=== PATIENT | female | born 2000 | race Two or more races ===

== ENCOUNTER 2022-04-07 02:47 | Emergency (ER) | payer OTHER ==
[2022-04-07 02:58] VITALS: BP 139/92
--- NOTE | 2022-04-07 03:40 | ED Physician Documentation ---
PD HPI UPPER EXT INJURY - Stated complaint Stated Complaint: R THUMB LAC - Chief complaint Chief Complaint: Laceration - History obtained from History obtained from: Patient - History of Present Illness Location: Right, Finger (thumb) Type of injury: Laceration Where injury occurred: Home Timing - onset: Enter time (02:30) Timing - details: Abrupt onset Associated symptoms: No: Weakness, Numbness, Tingling Similar symptoms before: Has not had sx before Recently seen: Not recently seen - Additonal information Additional information: at approximately 2:30 AM this morning patient sustained right thumb laceration on a pocket knife she was using to try to pry open the trunk of her car. She is right hand dominant. She is UTD on immunizations including tetanus. Review of Systems Skin: reports: Laceration (s) Musculoskeletal: reports: Extremity pain (localized to site of laceration). denies: Extremity swelling Neurologic: denies: Focal weakness, Numbness PD PAST MEDICAL HISTORY - Past Medical History Past Medical History: No - Present Medications Home Medications: Ambulatory Orders Medication Instructions Recorded Confirmed No Known Home Medications 04/07/22 04/07/22 - Allergies Allergies/Adverse Reactions: Allergies Allergy/AdvReac Type Severity Reaction Status Date / Time No Known Drug Allergies Allergy Verified 04/07/22 02:58 - Living Situation Living Arrangement: reports: At home PD ED PE NORMAL - Vitals Vital signs reviewed: Yes - General General: Alert and oriented X 3, No acute distress, Well developed/nourished - Extremities Extremities: Normal ROM s pain, Other ("C"-shaped beveled laceration to tip of right thumb pad) - Neuro Neuro: No motor deficit, No sensory deficit Results - Vitals Vitals: Oxygen O2 Source Room air Procedures - Laceration (location) Finger right Length in cm: 2 Wound type: Curved, Into subcut fat Neurovascular status: Sensory intact, Motor intact, Vascular intact Tendon involvement: Tendon intact Anesthesia: Lidocaine 1% Wound preparation: Chlorhexadine, Irrigated copiously NS, Wound explored Skin layer closure: Nylon, Interrupted, Running, Size #-0 - enter number (4-0), Other (running suture with a single simple interrupted suture to correct minor gapping) PD MEDICAL DECISION MAKING - ED course Complexity details: considered differential, d/w patient Departure - Departure Disposition: 01 Home, Self Care Clinical Impression: Laceration Condition: Good Instructions: ED Laceration Hand Comments: Follow up with your primary care provider in 7-8 days for removal of the sutures. As we discussed, if your primary care provider does not have weekend hours (7 or 8 days will be next Saturday/Saturday), you can see if they can take the stitches out in 6 days (Saturday) or else the following Saturday. Discharge Date/Time: 04/07/22 06:07
[2022-04-07] MEDS ORDERED: LIDOCAINE 1% 2 ML VIAL SUBQ STA (03:55)
[2022-04-07] MEDS ORDERED: LIDOCAINE 1% 2 ML VIAL ONE (04:06)
[2022-04-07] MEDS ORDERED: lidocaine 1% 20 ML MDV ONE (04:07)
[2022-04-07] MEDS ORDERED: BACITRACIN ZINC OINT 1 PACKET TOP STA (05:53)
== END 2022-04-07 06:07 | disposition home or self-care (01) ==
LOC: ED 02:47
DX: S61.011A Laceration without foreign body of right thumb without damage to nail, initial encounter (principal); X58.XXXA Exposure to other specified factors, initial encounter
CPT/HCPCS: 12001; 99282; A9270

== ENCOUNTER 2023-07-15 15:30 | Outpatient (CLI) | payer OTHER ==
[2023-07-15 17:50] LABS: BASOPHILS % (AUTO) 0.5 %; EOSINOPHILS # (AUTO) 0.1 10^3/uL (0.0-0.7); EOSINOPHILS % (AUTO) 1.4 %; HCT - HEMATOCRIT 41.3 % (37.0-47.0); HGB - HEMOGLOBIN 13.6 g/dL (12.0-16.0); LYMPHOCYTES # (AUTO) 2.5 10^3/uL (1.5-3.5); LYMPHOCYTES % (AUTO) 34.1 %; MEAN CORPUSCULAR HEMOGLOBIN 29.6 pg (27.0-31.0); MEAN CORPUSCULAR HGB CONC 32.9 g/dL (32.0-36.0); MONOCYTES # (AUTO) 0.6 10^3/uL (0.0-1.0); NEUTROPHILS # (AUTO) 4.1 10^3/uL (1.5-6.6); NEUTROPHILS % (AUTO) 55.7 %; PLT - PLATELET COUNT 366 10^3/uL (130-450); RED BLOOD COUNT 4.59 10^6/uL (4.20-5.40); RED CELL DISTRIBUTION WIDTH 13.3 % (12.0-15.0); WHITE BLOOD COUNT 7.4 x10^3/uL (4.8-10.8)
[2023-07-15 18:00] LABS: ALBUMIN 4.3 g/dL (3.2-5.5); ALBUMIN/GLOBULIN RATIO 1.5 (1.0-2.2); BILIRUBIN,TOTAL 0.3 mg/dL (0.2-1.0); CALCIUM 9.3 mg/dL (8.5-10.3); CREATININE 0.6 mg/dL (0.6-1.3); POTASSIUM 3.9 mmol/L (3.5-4.5); TOTAL PROTEIN 7.1 g/dL (6.4-8.9)
== END 2023-07-15 15:31 | disposition home or self-care (01) ==
LOC: LAB.N 15:30
PROVIDERS: ATTEND Emergency Medicine
DX: R10.811 Right upper quadrant abdominal tenderness (principal)
CPT/HCPCS: 36415; 80053; 83690; 85025